=== PATIENT | male | born 1985 | race Caucasian/White ===

== ENCOUNTER 2017-03-13 12:13 | Emergency (ER) | payer SELFPAY ==
[2017-03-13 12:26] VITALS: BP 115/76
--- NOTE | 2017-03-13 13:23 | ER Document Report ---
ED Skin Rash/Insect Bite/Abscs - General Chief Complaint: Rash Stated Complaint: RASH/BLISTERS ON FACE Time Seen by Provider: 03/13/17 13:07 Notes: 31 yo male c/o painful rash to face and right leg. pt noted pustular rash. he popped the "bumps" and the pain and swelling increased. pt was recently released from skilled nursing. he took left-over clindamycin for 3 days. TRAVEL OUTSIDE OF THE [place] IN LAST 30 DAYS: No - HPI Patient complains to provider of: Skin rash/lesion Onset/Duration: Gradual Skin Temperature: Warm Exacerbated by: Denies Relieved by: Denies Similar symptoms previously: No Recently seen / treated by doctor: No - Related Data Allergies/Adverse Reactions: No Known Allergies Allergy (Unverified 03/13/17 12:26) Past Medical History - General Information source: Patient - Social History Smoking Status: Current Every Day Smoker Chew tobacco use (# tins/day): No Frequency of alcohol use: None Drug Abuse: None Family History: Reviewed & Not Pertinent Patient has suicidal ideation: No Patient has homicidal ideation: No - Medical History Medical History: Negative Renal/ Medical History: Denies: Hx Peritoneal Dialysis Surgical Hx: Negative - Immunizations Hx Diphtheria, Pertussis, Tetanus Vaccination: No Review of Systems - Review of Systems Constitutional: No symptoms reported EENT: No symptoms reported Cardiovascular: No symptoms reported Respiratory: No symptoms reported Gastrointestinal: No symptoms reported Genitourinary: No symptoms reported Male Genitourinary: No symptoms reported Musculoskeletal: No symptoms reported Skin: See HPI Hematologic/Lymphatic: No symptoms reported Neurological/Psychological: No symptoms reported Physical Exam - Vital signs Vitals: Temp Pulse Resp BP Pulse Ox 98.4 F 72 18 115/76 96 03/13/17 12:22 03/13/17 12:22 03/13/17 12:22 03/13/17 12:22 03/13/17 12:22 Interpretation: Normal - General General appearance: Appears well, Alert - HEENT Head: Normocephalic, Atraumatic Eyes: Normal Pupils: PERRL - Respiratory Respiratory status: No respiratory distress Chest status: Nontender Breath sounds: Normal Chest palpation: Normal - Cardiovascular Rhythm: Regular Heart sounds: Normal auscultation Murmur: No - Abdominal Inspection: Normal Distension: No distension Bowel sounds: Normal Tenderness: Nontender Organomegaly: No organomegaly - Back Back: Normal, Nontender - Extremities General upper extremity: Normal inspection, Nontender, Normal color, Normal ROM , Normal temperature General lower extremity: Normal inspection, Nontender, Normal color, Normal ROM , Normal temperature, Normal weight bearing. No: Vinny's sign - Neurological Neuro grossly intact: Yes Cognition: Normal Orientation: AAOx4 Francia Coma Scale Eye Opening: Spontaneous [place] Coma Scale Verbal: Oriented [place] Coma Scale Motor: Obeys Commands Francia Coma Scale Total: 15 Speech: Normal Motor strength normal: LUE, RUE, LLE, RLE Sensory: Normal - Psychological Associated symptoms: Normal affect, Normal mood - Skin Skin Temperature: Warm Skin Moisture: Dry Skin Color: Normal Skin irregularity: Rash Location of irregularity: Face, Extremities - right posterior calf Character of irregularity: Other - scattered papulo-pustular rash, deroofed lesions. no dermatomal distribution. no induration or flutuance Course - Re-evaluation Re-evalutation: 03/13/17 13:26 rash does not follow a dermatomal distribution. no s/s abscess. will treat for staph infection. pt stable for discharge - Vital Signs Vital signs: Temp Pulse Resp BP Pulse Ox 98.4 F 72 18 115/76 96 03/13/17 12:22 03/13/17 12:22 03/13/17 12:22 03/13/17 12:22 03/13/17 12:22 Discharge - Discharge Clinical Impression: Rash Condition: Stable Disposition: HOME, SELF-CARE Instructions: Antibiotic Therapy ([facility]), Antibiotic Ointment Protection ([facility]) Additional Instructions: wash skin with antibacterial soap and water take antibiotics as prescribed follow up with primary care if symptoms persist return to ER for any worsening Prescriptions: Cephalexin Monohydrate [Keflex 500 mg Capsule] 500 mg PO QID #28 capsule Mupirocin [Bactroban 2% Ointment 22 gm] 1 applic TP TID #1 tube Sulfamethoxazole/Trimethoprim [Bactrim Ds Tablet] 1 tab PO BID #20 tablet
[2017-03-13] MEDS ORDERED: LIDOCAINE 1% INJ-PF (10 MG/ML) 30 ML SDV INFIL ONE (13:56)
[2017-03-13] MEDS ORDERED: CEFTRIAXONE INJ 1000 MG VIAL IM ONE (13:56)
[2017-03-13] MEDS ORDERED: HYDROCODONE/ACETAMINOPHEN 5-325 MG 6 TAB/DSPK PO PRN (13:57)
[2017-03-13] MEDS ORDERED: SULFAMETHOXAZOLE/TRIMETHOPRIM 800-160 MG TABLET PO ONE (13:57)
[2017-03-13] MEDS ORDERED: ONDANSETRON 4 MG TAB.RAPDIS PO ONE (13:59)
[2017-03-13] MEDS ORDERED: CEPHALEXIN 500 MG CAPSULE PO ONE (13:59)
== END 2017-03-13 14:48 | disposition home or self-care (01) ==
LOC: ER 12:13
DX: L08.0 Pyoderma (principal); F17.200 Nicotine dependence, unspecified, uncomplicated
CPT/HCPCS: 99282; S0119; J0696